=== PATIENT | female | born 1940 | race Caucasian/White ===

== ENCOUNTER 2021-01-31 11:56 | Inpatient (IN) | payer OTHER ==
[~2021-01-31] VITALS: Ht 152.4 cm; Wt 60.5 kg
--- NOTE | ~2021-01-31 | EEG ---
[address] [address] EEG STUDY REPORT Name: PATRIA,TACHO B Room: [address] IN .R#: [id number] Admission: 01/31/21 Attend Phys: Sandra Broussard Discharge: Date of : 38 Report #: [id number] THIS REPORT FOR: cc: Joaquin Wray Bradley L. DO Khosla,Marquis Sawyer MD ~ DATE OF SERVICE: 02/01/2021 This patient is being evaluated for altered mental status. EEG is being done to evaluate that. EEG was done by placing the electrode by standard 10-20 system of electrode placement. Both referential and sequential montages were used for recording. Background activity in this patient's EEG is about 10 Hz and 30-40 microvolts. This patient became drowsy and that is associated with bilateral slowing and vertex sharp waves. Photic stimulation is unremarkable. Throughout the record, no active epileptiform activity was noticed. IMPRESSION: This patient's EEG is within normal limits. Thank you very much for this referral. By: [id number] Manning MD /nt
--- NOTE | ~2021-01-31 | CON ---
[address] [address] CONSULTATION Name: TACHO ESPAÑA Room: [address] IN M.R.#: [id number] Admission: 01/31/21 Attend Phys: Sandra Broussard Discharge: Date of : 38 Report #: [id number] THIS REPORT FOR: cc: Joaquin Wray Bradley L. DO Khosla, Parveen K. MD ~ DATE OF CONSULTATION: 02/01/2021 HISTORY OF PRESENT ILLNESS: This is an 80-year-old female patient who was evaluated by me for memory disturbances. She is pretty apathetic. She says her main problem is back pain. She does not think there is much memory issues. Then, I asked her how is her memory, she says I hope it is okay. Therefore, further history was attempted, but the history was not very good in that regard. She does not know when it started. Her main problem is pain according to her. REVIEW OF SYSTEMS: Positive for hypertension and hyperlipidemia. She has chronic back and neck pain. She has a history of hypothyroidism and spinal stenosis. I carried out a 14-point review of system and rest of the system was unremarkable. She does have a history of thyroid disease and now has new onset atrial fibrillation. PAST MEDICAL HISTORY: According to her is negative for stroke. FAMILY HISTORY: Negative for early age stroke. SOCIAL HISTORY: She has a history of smoking. PHYSICAL EXAMINATION: NEUROLOGIC: Indicate she is alert, responsive, somewhat apathetic and examination, but she was able to tell me what month and what day it is. She knew what hospital she is in. She was able to name the present president, but could not name the 1 before. Cranial nerve examination 2-12 looks mostly unremarkable. She has symmetrical strength, sensation, reflexes and tone in all 4 extremities. She did fairly well with position sense and neuromuscular examination was pretty symmetrical. There was no cerebellar sign. There is no meningeal sign. I could not look at the patient's fundus. CARDIAC: She is being evaluated for atrial fibrillation. RESPIRATORY: Examination is unremarkable. GENERAL: She is moderately built individual. HEENT: Her hearing and vision looks adequate. NECK: There is no thyroid mass. There is no carotid bruit. VITAL SIGNS: Her blood pressure is 168/73, pulse is 69, temperature is 98.6, respiration is 19. LABORATORY DATA: White count is 7.2. [place] [address] CONSULTATION Name: PATRIATACHO B Room: [address]#: [id number] Admission: 01/31/21 Attend Phys: Sandra Broussard Discharge: Date of : 38 Report #: [id number] IMPRESSION: It is difficult to tell what the patient's baseline is and if she is having more memory problems. I will get speech therapy to evaluate this patient to quantify the memory disturbance as no neuropsychologist to come here. Her B12 and thyroid function is already ordered. I will look at the CT scan and EEG and then decide about MRI. She also has atrial fibrillation and that also need to be addressed, although she did not give any symptoms suggestive of stroke. Thank you very much for this referral and we will follow the patient along with you. By: 1131 01Marquis Manning MD /nt
[2021-01-31 11:59] VITALS: BP 175/62
[2021-01-31 12:25] LABS: ABSOLUTE EOSINOPHILS 0.1 thou/uL (0.0-0.7); ABSOLUTE LYMPHOCYTES 0.6 thou/uL (0.8-5.3); ABSOLUTE MONOCYTES 0.7 thou/uL (0.0-1.2); ABSOLUTE NEUTROPHILS 5.8 thou/uL (1.6-8.1); BASOPHILS 0.3 %; EOSINOPHILS 1.8 %; HEMATOCRIT 44.3 % (37.0-47.0); HEMOGLOBIN 15.1 gm/dL (12.0-15.0); LYMPHOCYTES 7.8 %; MCH 35.8 pg (26.0-34.0); MCHC 34.1 g/dL (28.0-37.0); MONOCYTES 9.5 %; MPV 7.5 fl. (7.2-11.1); NUCLEATED RBCS 0 /100WBC; PLATELET COUNT* 511 thou/uL (150-400); POLYS 80.6 %; RBC 4.22 mil/uL (4.20-5.00); WBC 7.2 thou/uL (4.0-11.0)
[2021-01-31 12:38] LABS: CALCIUM 8.9 mg/dL (8.5-10.1); CREATININE 0.9 mg/dL (0.6-1.3); POTASSIUM 3.5 mmol/L (3.5-5.1)
[2021-01-31 12:42] LABS: ALBUMIN 4.5 g/dL (3.4-5.0); TOTAL BILIRUBIN 0.9 mg/dL (<0.1-1.0); TOTAL PROTEIN 7.7 g/dL (6.4-8.2)
[2021-01-31 13:29] LABS: URINE BILIRUBIN NEGATIVE (Negative); URINE BLOOD NEGATIVE (Negative); URINE CLARITY CLEAR; URINE COLOR YELLOW; URINE GLUCOSE-RANDOM TRACE (Negative); URINE KETONES TRACE (Negative); URINE LEUKOCYTES-REFLEX NEGATIVE (Negative); URINE NITRITE-REFLEX NEGATIVE (Negative); URINE PROTEIN NEGATIVE (Negative); URINE SPECIFIC GRAVITY 1.015 (1.005-1.030); URINE UROBILINOGEN 0.2 E.U./dl (0.2-1.0)
[2021-01-31 16:58] VITALS: BP 129/76
[2021-01-31 22:34] VITALS: BP 153/68
[2021-02-01 02:35] VITALS: BP 141/74
[2021-02-01 06:18] VITALS: BP 145/78
[2021-02-01 08:00] VITALS: BP 176/67
[2021-02-01 08:30] VITALS: BP 168/73
--- NOTE | 2021-02-01 09:58 | NUR ---
CM SPK WITH PT WHO INDICATED SHE LIVES ALONE, SHE RECENTLY HAD TO PLACE SPOUSE IN LTC FACILITY. PT HAS NO DMES. PT INDICATED SHE IS INDEPENDENT WITH ADLS AND DOES HER OWN CHORES. STATED HER SON AND DTR CMOME BY TO SEE ABOUT HER ALL THE TIME. PT STATED SHE "CAN DRIVE, BUT DECIDED NOT TO." PT DENIES HX WITH HH OR SNF. CM TO CONT TO FOLLOW.
--- NOTE | 2021-02-01 10:15 | NUR ---
0815: PATIENT TRANSFERED TO FLOOR FROM ED VIA BED ACCOMPANIED BY JARRED GARCIA. REPORT GIVEN OVER PHONE FROM JARRED GARCIA. PATIENT ADMITTED FOR WEAKNESS AND N/V. IV TO LEFT AC, PATENT. ORIENTED TO ROOM AND FLOOR. ALL QUESTIONS AND CONCERNS ADDRESSED. WILL CONTINUE TO MONITOR.
--- NOTE | 2021-02-01 10:45 | EKG ---
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 : 1940 Requested By: Enrike Abreu Order Number: [id number] MD: Carson Cagle Measurements Intervals Epworth Rate: 70 P: MI: QRS: -20 QRSD: 97 T: 130 QT: 406 QTc: 439 Interpretive Statements sinus rhythm with supraventricular complex Borderline left axis deviation Nonspecific T abnrm, anterolateral leads No previous ECG available for comparison Electronically Signed On 02-01-2021 10:44:53 CDT by Carson Cagle [email or web address] <ELECTRONICALLY SIGNED> By: Carson Cagle MD, [facility] 02/01/21 1044 1217 1217 Carson Cagle MD, [facility] /EPI
[2021-02-01 16:00] VITALS: BP 137/62
--- NOTE | 2021-02-01 18:17 | NUR ---
PATIENT RESTING COMFORTABLY IN BED. TOLERATING 2L OXYGEN NASAL CANNULA, SAT @97%. LUNG SOUNDS CLEAR BILATERALLY. ALERT AND ORIENTED X4. STAND BY ASSIST. IV TO LEFT AC INFUSING NORMAL SALINE @100ML/HR. BED IN LOW/LOCKED POSITION. BED ALARM ON. CALL LIGHT WITHIN REACH. ALL QUESTIONS AND CONCERNS ADDRESSED.
[2021-02-01 19:50] VITALS: BP 167/77
[2021-02-02] VITALS: BP 104/69
[2021-02-02 04:16] VITALS: BP 155/76
--- NOTE | 2021-02-02 04:21 | NUR ---
PT A&O X 4. ON 2L. PILLS CRUSHED AND GIVEN WITH APPLE SAUCE. NO C/O PAIN. PT INCONTINENT OF BOWEL, HAD LIQUIDY STOOL SEVERAL TIMES. DRESSING TO RT THIGH GET SOILED AND CHANGED. CALL LIGHT WITHIN REACH. WILL CONTINUE TO MONITOR.
--- NOTE | 2021-02-02 04:30 | NUR ---
PT A&O X 4, FORGETFUL. ON 2L. MEDS GIVEN ORDERED. UP TO BSC WITH SBA. BED ALARM ON FOR SAFETY. CALL LIGHT WITHIN REACH. WILL CONTINUE TO MONITOR.
[2021-02-02 04:47] LABS: ABSOLUTE EOSINOPHILS 0.2 thou/uL (0.0-0.7); ABSOLUTE LYMPHOCYTES 1.4 thou/uL (0.8-5.3); ABSOLUTE MONOCYTES 1.1 thou/uL (0.0-1.2); ABSOLUTE NEUTROPHILS 6.5 thou/uL (1.6-8.1); BASOPHILS 0.3 %; EOSINOPHILS 2.5 %; HEMATOCRIT 45.3 % (37.0-47.0); HEMOGLOBIN 15.7 gm/dL (12.0-15.0); LYMPHOCYTES 14.7 %; MCH 36.2 pg (26.0-34.0); MCHC 34.6 g/dL (28.0-37.0); MCV 104.6 fL (80.0-100.0); MONOCYTES 12.1 %; MPV 8.1 fl. (7.2-11.1); NUCLEATED RBCS 0 /100WBC; PLATELET COUNT* 489 thou/uL (150-400); POLYS 70.4 %; RBC 4.33 mil/uL (4.20-5.00); RDW-CV 13.7 % (10.5-14.5); WBC 9.2 thou/uL (4.0-11.0)
[2021-02-02 05:27] LABS: ALBUMIN 4.5 g/dL (3.4-5.0); CALCIUM 9.4 mg/dL (8.5-10.1); CREATININE 0.9 mg/dL (0.6-1.3); POTASSIUM 3.9 mmol/L (3.5-5.1); TOTAL BILIRUBIN 0.8 mg/dL (<0.1-1.0); TOTAL PROTEIN 7.5 g/dL (6.4-8.2)
[2021-02-02 09:04] VITALS: BP 134/77
[2021-02-02 12:28] VITALS: BP 133/68
[2021-02-02 13:45] LABS: CALCIUM 9.4 mg/dL (8.5-10.1); POTASSIUM 3.5 mmol/L (3.5-5.1)
[2021-02-02 13:48] LABS: PHOSPHORUS* 2.7 mg/dL (2.5-4.9)
[2021-02-02 16:00] VITALS: BP 149/62
--- NOTE | 2021-02-02 16:36 | NUR ---
ASSUMED PT CARE AT 0730. PT IS PLEASANTLY, A&O TO PERSON AND PLACE WITH SOME FORGETFULNESS. ASSESSMENT COMPLETED, PT C/O HEADACHE AND BACK ACHE THIS AFTERNOON AND PRN TYLENOL ADMINISTERED WITH EFFCTIVE RESULTS. SPOKE WITH DAUGHTER TO UPDATE PT. PT SITTING UP IN CHAIR. STAND BY ASSIST AND PT APPEARS TO BE STEADY ON HER FEET. SAFETY MEASURES IN PLACE. MEDICATIONS ADMINISTERED ORDERED. PT DENIES ANY NAUSEA AND OR VOMITING THIS SHIFT THUS FAR.
--- NOTE | 2021-02-02 17:38 | NUR ---
[facility] DISCUSSED SNF OPTION WITH PT. PT WANTS TO GO TO [facility]. SHILPA WITH JONES CONTACTED [facility] PT'S DTR REACHED OUT TO SHILPA SO SHILPA ASKED FOR CLINICALS TO BE SENT. CM FAXED REFERRALS TO [phone].
[2021-02-02 20:00] VITALS: BP 133/52
[2021-02-03 02:09] VITALS: BP 182/76
[2021-02-03 05:26] VITALS: BP 172/78
--- NOTE | 2021-02-03 06:30 | NUR ---
ASSUMED CARE OF PT AFTER REPORT AT 1930. PT A&OX4. FORGETFUL & IMPULSIVE AT TIMES. VSS. PHYSICAL ASSESSMENT COMPLETED AND CHARTED. PT ON RA. PT TRACING SR/SB/PAC ON TELE. PT UPSTANDBY TO BSC. PT COMPLAINED OF BACK PAIN THIS AM-MED GIVEN PER AUG. FALL PRECAUTIONS IN PLACE. CALL LIGHT WITHIN REACH.
[2021-02-03 08:32] VITALS: BP 175/68
[2021-02-03] MEDS ORDERED: ARICEPT 5 MG TAB5 MG PO (10:15)
[2021-02-03] MEDS ORDERED: MELATONIN5 M1 PO (10:15)
[2021-02-03] MEDS ORDERED: METOPROLOL TART25 MG PO (10:15)
[2021-02-03] MEDS ORDERED: PAIN RELIEVER500 MG PO (10:15)
[2021-02-03] MEDS ORDERED: LIPITOR 20 MG T20 M1 PO (10:15)
[2021-02-03] MEDS ORDERED: ADULT LOW DOSE81 MG PO (10:15)
[2021-02-03 12:00] VITALS: BP 141/72
--- NOTE | 2021-02-03 14:29 | NUR ---
ASSUMED PT CARE AT 0730. PT IS PLEASANTLY A&OX4 WITH SOME FORGETFULNESS. ASSESSMENT COMPLETED. PT C/O BACK PAIN TODAY, PRN TYLENOL GIVEN WITH EFFECTIVE RESULTS. PT DOWN FOR MRI OF HEAD TODAY. PT UP TO BSC WITH STAND BY ASSIST.PT WITH POOR APPETITE TODAY. PT STATES SHE DOESNT OFTEN HAVE A BIG APPETITE. MEDICATIONS ADMINISTERED. SAFETY MEASURES IN PLACE..
--- NOTE | 2021-02-03 14:54 | NUR ---
PLAN OF CARE: PHYSICIAN INFORMS PT MAY BE READY TO D/C TO SNF PENDING MRI. [facility] SNF ADMISSIONS UNSURE IF INSURANCE WILL APPROVE SNF. MRI WILL ASSIST WITH THIS DECISION. CM WILL REMAIN AVAILABLE TO ASSIST AND FOLLOW NEEDED.
[2021-02-03 19:22] VITALS: BP 143/67
[2021-02-03 20:00] VITALS: BP 147/69
[2021-02-04 00:49] VITALS: BP 129/81
[2021-02-04 04:35] VITALS: BP 169/77
--- NOTE | 2021-02-04 06:51 | NUR ---
Alert and oriented x 4 but forgetful. She does get up to the bedside commode independently. She was complaining of neck and back pain and extra strength tylenol, wasn't helping. Dr Harris gave new order. She has slept well.
[2021-02-04 12:00] VITALS: BP 164/58
--- NOTE | 2021-02-04 12:13 | NUR ---
AT 1100 PATIENT DID NOT WANT TO GET UP AND AMBULATE. SAYS SHE FEELS WEAK AND VERY BAD TODAY. PATIENT IS NOT WANTING TO LEAVE AND GOES TO NURSING HOME TODAY. DID PAGE DR MARQUEZ TO REPORT PATIENTS CONDITION. HE WILL COME SEE PATIENT.
--- NOTE | 2021-02-04 15:07 | NUR ---
ASSUME CARE OF PATIENT AT 0700. PATIENT QUIET WITH EYES CLOSED. FACE APPEARS PALE. IV SITE IS PATIENT. 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
--- NOTE | 2021-02-04 15:40 | NUR ---
REPORT CALLED TO FACILITY IN [facility]. PATIENT WILL GO PER W/C SHANAE. REPORT CALLED TO JADA MONTAÑO.
--- NOTE | 2021-02-04 16:47 | NUR ---
patient leaves per van in stable condition. patient is awake and oriented. all belongings gathered and sent with patient.
--- NOTE | 2021-02-04 16:56 | NUR ---
PLAN FOR THE PT TO D/C TO [facility] TODAY. CM SPOKE TO THE PT AND FAMILY TO INFORM AND BOTH ARE IN AGREEMENT. PT TO TRANSPORT BY [facility] VAN AT 1700. D/C ORDERS FAXED. RN INFORMED OF WHERE TO CALL REPORT. CM WILL REMIAN AVAILABLE TO ASSIST AND FOLLOW NEEDED.
[2021-02-05 17:07] LABS: VITAMIN B6 (PYRIDOXAL 5-PHOS) 3.3 ug/L (2.0-32.8)
== END 2021-02-04 16:35 | DRG 640 ==
LOC: M.ERS 11:56 → M.TBA-ER 12:41 → M.2W 12:41
PROVIDERS: Nurse Practitioner Psychiatric/Mental Health; ADMIT Internal Medicine; ATTEND Internal Medicine
DX: E86.0 Dehydration (principal); G93.41 Metabolic encephalopathy; D68.59 Other primary thrombophilia; I48.91 Unspecified atrial fibrillation; Z20.822 Contact with and (suspected) exposure to COVID-19; E78.5 Hyperlipidemia, unspecified; G89.29 Other chronic pain; I12.9 Hypertensive chronic kidney disease with stage 1 through stage 4 chronic kidney disease, or unspecified chronic kidney disease; E03.9 Hypothyroidism, unspecified; M54.2 Cervicalgia; F03.90 Unspecified dementia, unspecified severity, without behavioral disturbance, psychotic disturbance, mood disturbance, and anxiety; N18.9 Chronic kidney disease, unspecified; Z87.891 Personal history of nicotine dependence